=== PATIENT | female | born 1985 | race Caucasian/White ===

== ENCOUNTER → 2017-05-14 | Outpatient (CLI) | payer OTHER, SELFPAY ==
[~2017-05-14] MED LIST: BACTRIM DS TAB1 EACH; BACTRIM DS TAB1 EACH PO; CHILDREN'S15 MG/1 ML PO; CIPROFLOXACIN500 M1 PO; CYCLOBENZAPRINE10 MG PO; FIORICET 50-301 EACH PO; FLONASE 0.05%50 MCG NASAL; HYDROCODONE-AP1 EAC6 PO; IBUPROFEN 600600 M1 PO; MACROBID 100 M100 M1 PO; NORCO 5-325 TA1 EACH PO; PRENATAL COMPL1 EACH; TOBREX3.5 GM OP; TRAMADOL 50 MG50 MG PO
== END ==
LOC: M.CT 15:00
DX: K43.9 Ventral hernia without obstruction or gangrene (principal); N20.0 Calculus of kidney; N28.89 Other specified disorders of kidney and ureter

== ENCOUNTER 2018-07-23 19:20 | Emergency (ER) | payer OTHER ==
[~2018-07-23] VITALS: Ht 170.2 cm; Wt 128.4 kg
[2018-07-23] MEDS ORDERED: LEXAPRO20 MG (19:29)
[2018-07-23] MEDS ORDERED: NORVASC5 MG (19:29)
[2018-07-23] MEDS ORDERED: NORCO 5-325 TA1 EACH PO (21:22)
[2018-07-23 21:48] VITALS: BP 146/95
== END 2018-07-23 21:48 | disposition home or self-care (01) ==
LOC: M.ERS 19:20
DX: S93.491A Sprain of other ligament of right ankle, initial encounter (principal); F32.9 Major depressive disorder, single episode, unspecified; I10 Essential (primary) hypertension; Z87.440 Personal history of urinary (tract) infections; Z98.890 Other specified postprocedural states; Z88.8 Allergy status to other drugs, medicaments and biological substances; W10.8XXA Fall (on) (from) other stairs and steps, initial encounter; Y93.89 Activity, other specified; Y92.89 Other specified places as the place of occurrence of the external cause; Y99.8 Other external cause status